=== PATIENT | female | born 1990 | race Caucasian/White ===

== ENCOUNTER 2019-11-12 21:15 | Outpatient (CLI) | payer BC ==
[~2019-11-12] VITALS: Ht 157.5 cm; Wt 93.6 kg
[~2019-11-12 21:15] MED LIST: IBUP-1222 PO; OXYC-302 PO
[2019-11-12 21:59] VITALS: BP 118/81
== END 2019-11-12 23:59 | disposition home or self-care (01) ==
LOC: LDOP 21:15
PROVIDERS: ATTEND Obstetrics & Gynecology
DX: O26.893 Other specified pregnancy related conditions, third trimester (principal); R10.9 Unspecified abdominal pain; Z3A.39 39 weeks gestation of pregnancy
CPT/HCPCS: 59025; 99211; G0463

== ENCOUNTER 2019-11-13 06:38 | Inpatient (IN) | payer BC ==
[~2019-11-13] VITALS: Ht 157.5 cm; Wt 93.6 kg
[2019-11-13] MEDS ORDERED: OXYTOCIN 30U/ 0.9% NaCL 500ML 500 ML IV PRN ×2 (06:50→07:16)
[2019-11-13] MEDS ORDERED: OXYTOCIN 30U/ 0.9% NaCL 500ML 500 ML IV ONE (06:50)
[2019-11-13] MEDS ORDERED: TERBUTALINE 1 MG/ML, 1ML IVPush PRN (07:00)
[2019-11-13] MEDS ORDERED: ONDANSETRON 2MG/ML, 2ML IVPush PRN ×2 (07:00→10:00)
[2019-11-13] MEDS ORDERED: METOCLOPRAMIDE 5 MG/ML, 2ML IVPush PRN (07:00)
[2019-11-13] MEDS ORDERED: FENTANYL PF 100 MCG/2ML IV PRN (07:00)
[2019-11-13] MEDS ORDERED: SODIUM CITRATE/CITRIC ACID 30 ML UDC PO PRN (07:00)
[2019-11-13] MEDS ORDERED: TERBUTALINE 1 MG/ML, 1ML SQ PRN (07:00)
[2019-11-13] MEDS ORDERED: FENTANYL PF 100 MCG/2ML IVPush PRN (07:00)
[2019-11-13] MEDS: LACTATED RINGERS 1,000 ML IV SCH ×6 (07:06→23:33)
[2019-11-13] MEDS ORDERED: MISOPROSTOL 200 MCG TABLET ONE (07:13)
[2019-11-13] MEDS ORDERED: LIDOCAINE 1%, 20ML ONE (07:13)
[2019-11-13] MEDS ORDERED: NEWBORN KIT ONE ×2 (07:13→22:13)
[2019-11-13] MEDS ORDERED: OXYTOCIN 30U/ 0.9% NaCL 500ML 500 ML ONE ×2 (07:13→22:33)
[2019-11-13 07:24] LABS: BASOPHILS # (AUTO) 0.02 x10^3/uL (0-0.1); BASOPHILS % (AUTO) 0 % (0-1); EOSINOPHILS # (AUTO) 0.03 x10^3/uL (0-0.4); EOSINOPHILS % (AUTO) 1 % (1-7); LYMPHOCYTES # (AUTO) 1.86 x10^3/uL (1-3.4); LYMPHOCYTES % (AUTO) 30 % (22-44); MD NO; MEAN CORPUSCULAR HEMOGLOBIN 30.7 pg (27.0-34.8); MEAN CORPUSCULAR HGB CONC 33.7 g/dL (32.4-35.8); MEAN CORPUSCULAR VOLUME 91.2 fL (80-100); MEAN PLATELET VOLUME 8.3 fL (7.4-10.4); MONOCYTES # (AUTO) 0.72 x10^3/uL (0.2-0.8); MONOCYTES % (AUTO) 12 % (2-9); NEUTROPHILS # (AUTO) 3.59 x10^3/uL (1.8-6.8); NEUTROPHILS % (AUTO) 58 % (42-75); PLATELET COUNT 243 x10^3/uL (130-400); RED BLOOD COUNT 3.89 x10^6/uL (3.82-5.3); RED CELL DISTRIBUTION WIDTH 12.9 % (9.6-15.2)
[2019-11-13 07:54] VITALS: BP 119/75
[2019-11-13] MEDS ORDERED: FENTANYL/BUPIV./NS/PF 250 ML EPIDCONT SCH ×2 (08:09→09:33)
[2019-11-13] MEDS ORDERED: FENTANYL PF 500 MCG, BUPIVACAINE/PF 0.5%, 30ML 62.5 ML in SODIUM CHLORIDE 0.9% 177.5 ML EPIDCONT SCH (08:30)
[2019-11-13] MEDS ORDERED: BUPIVACAINE 0.25% ONE (09:06)
[2019-11-13] MEDS ORDERED: NALOXONE 0.4 MG/ML, 1ML IVPush PRN (10:00)
[2019-11-13] MEDS ORDERED: DIPHENHYDRAMINE 50 MG/ML, 1ML IVPush PRN (10:00)
[2019-11-13] MEDS ORDERED: EPHEDRINE 50 MG/ML, 1ML IVPush PRN (10:00)
[2019-11-13] MEDS ORDERED: LACTATED RINGERS 1,000 ML IVBOLUS PRN (10:00)
[2019-11-13] MEDS: D5%-LACTATED RINGERS 1,000 ML IV SCH ×3 (10:09→22:50)
[2019-11-13] MEDS ORDERED: LIDOCAINE/MPF 2%-EPI 1:200K, 20 ML ONE (17:54)
[2019-11-13] MEDS ORDERED: METHYLERGONOVINE 0.2 MG/ML IM ONE (22:33)
[2019-11-13] MEDS ORDERED: CEFAZOLIN 2,000 MG in SODIUM CHLORIDE 0.9% 50 ML IV STA (22:34)
[2019-11-13] MEDS ORDERED: METOCLOPRAMIDE 5 MG/ML, 2ML IV PRN (23:00)
[2019-11-13] MEDS ORDERED: OXYcodone/APAP 5/325MG TABLET PO PRN (23:00)
[2019-11-13] MEDS ORDERED: CARBOPROST TROMETHAMINE 250 MCG/ML, 1ML IM PRN (23:00)
[2019-11-13] MEDS ORDERED: ACETAMINOPHEN 325 MG TABLET PO PRN ×3 (23:00)
[2019-11-13] MEDS ORDERED: CALCIUM CARBONATE 500 MG TAB.CHEW PO PRN (23:00)
[2019-11-13] MEDS ORDERED: ONDANSETRON 2MG/ML, 2ML IV PRN (23:00)
[2019-11-13] MEDS ORDERED: MAGNESIUM HYDROXIDE 8%, 30ML UDC PO PRN (23:00)
[2019-11-13] MEDS ORDERED: METHYLERGONOVINE 0.2 MG/ML IM PRN (23:00)
[2019-11-13] MEDS ORDERED: SIMETHICONE 80 MG CHEW TAB PO PRN (23:00)
[2019-11-13] MEDS ORDERED: BISACODYL 10 MG SUPP PR PRN (23:00)
[2019-11-13] MEDS ORDERED: MISOPROSTOL 200 MCG TABLET PR PRN (23:00)
[2019-11-13] MEDS ORDERED: GLYCERIN ADULT SUPP PR PRN (23:00)
[2019-11-13] MEDS ORDERED: IBUPROFEN 600 MG TABLET ONE (23:28)
[2019-11-13] MEDS: IBUPROFEN 600 MG TABLET PO PRN (23:31)
[2019-11-13] MEDS: OXYTOCIN 30U/ 0.9% NaCL 500ML 500 ML IV SCH (23:33)
[2019-11-14] VITALS (7 sets, daily range): BP systolic 108–116; BP diastolic 74–82
[2019-11-14] MEDS: OXYcodone/APAP 5/325MG TABLET PO PRN ×2 (04:33→08:30)
[2019-11-14] MEDS: LEVOTHYROXINE 50 MCG TABLET PO SCH (06:15)
[2019-11-14 06:42] LABS: MEAN CORPUSCULAR HEMOGLOBIN 30.6 pg (27.0-34.8); MEAN CORPUSCULAR HGB CONC 33.5 g/dL (32.4-35.8); MEAN CORPUSCULAR VOLUME 91.3 fL (80-100); MEAN PLATELET VOLUME 8.3 fL (7.4-10.4); PLATELET COUNT 214 x10^3/uL (130-400); RED BLOOD COUNT 3.56 x10^6/uL (3.82-5.3); RED CELL DISTRIBUTION WIDTH 12.8 % (9.6-15.2)
[2019-11-14 08:14] LABS: BASOPHILS # (AUTO) 0.03 x10^3/uL (0-0.1); BASOPHILS % (AUTO) 0 % (0-1); EOSINOPHILS # (AUTO) 0.01 x10^3/uL (0-0.4); EOSINOPHILS % (AUTO) 0 % (1-7); LYMPHOCYTES # (AUTO) 1.65 x10^3/uL (1-3.4); LYMPHOCYTES % (AUTO) 12 % (22-44); MD SCAN; MONOCYTES # (AUTO) 1.53 x10^3/uL (0.2-0.8); MONOCYTES % (AUTO) 11 % (2-9); NEUTROPHILS # (AUTO) 10.57 x10^3/uL (1.8-6.8); NEUTROPHILS % (AUTO) 77 % (42-75)
[2019-11-14] MEDS: IBUPROFEN 600 MG TABLET PO PRN ×2 (08:31→15:20)
[2019-11-14] MEDS: PRENATAL VIT/IRON/FA 1 EACH TABLET PO SCH (08:31)
[2019-11-14] MEDS: OXYTOCIN 30U/ 0.9% NaCL 500ML 500 ML IV SCH ×2 (08:48→18:48)
[2019-11-14] MEDS: DOCUSATE 100 MG CAPSULE PO PRN (16:23)
[2019-11-15] MEDS: OXYTOCIN 30U/ 0.9% NaCL 500ML 500 ML IV SCH (04:48)
[2019-11-15] MEDS: LEVOTHYROXINE 50 MCG TABLET PO SCH (06:40)
[2019-11-15 08:00] VITALS: BP 97/66
[2019-11-15] MEDS: DOCUSATE 100 MG CAPSULE PO PRN (09:40)
[2019-11-15] MEDS: PRENATAL VIT/IRON/FA 1 EACH TABLET PO SCH (09:40)
[2019-11-15 13:00] VITALS: BP 110/76
== END 2019-11-15 14:39 | disposition home or self-care (01) | DRG 805 ==
LOC: LDIP 06:38 → 2NW 11-14 00:28
PROVIDERS: ADMIT Obstetrics & Gynecology; ATTEND Obstetrics & Gynecology
PROC: 10E0XZZ Delivery of Products of Conception, External Approach (ICD-10-PCS; principal; 2019-11-13)
PROC: 0KQM0ZZ Repair Perineum Muscle, Open Approach (ICD-10-PCS; 2019-11-13)
PROC: 10907ZU Drainage of Amniotic Fluid, Diagnostic from Products of Conception, Via Natural or Artificial Opening (ICD-10-PCS; 2019-11-13)
PROC: 10H07YZ Insertion of Other Device into Products of Conception, Via Natural or Artificial Opening (ICD-10-PCS; 2019-11-13)
PROC: 3E0R3BZ Introduction of Anesthetic Agent into Spinal Canal, Percutaneous Approach (ICD-10-PCS; 2019-11-13)
PROC: 00HU33Z Insertion of Infusion Device into Spinal Canal, Percutaneous Approach (ICD-10-PCS; 2019-11-13)
DX: O69.1XX0 Labor and delivery complicated by cord around neck, with compression, not applicable or unspecified (principal); O41.1230 Chorioamnionitis, third trimester, not applicable or unspecified; Z37.1 Single stillbirth; O34.211 Maternal care for low transverse scar from previous cesarean delivery; E89.0 Postprocedural hypothyroidism; O99.284 Endocrine, nutritional and metabolic diseases complicating childbirth; O71.82 Other specified trauma to perineum and vulva; O70.1 Second degree perineal laceration during delivery; O76 Abnormality in fetal heart rate and rhythm complicating labor and delivery; Z3A.40 40 weeks gestation of pregnancy; Z90.49 Acquired absence of other specified parts of digestive tract
CPT/HCPCS: 36415; J7121; S0020; 82803; 85025; 86592; 86850; 86900; G0378; J0690; J3010; J3490; J2590; J7050; J7120

== ENCOUNTER 2020-04-19 14:56 | Outpatient (CLI) | payer BC ==
[2020-04-19 15:34] LABS: BASOPHILS # (AUTO) 0.02 x10^3/uL (0-0.1); BASOPHILS % (AUTO) 0 % (0-1); EOSINOPHILS # (AUTO) 0.11 x10^3/uL (0-0.4); EOSINOPHILS % (AUTO) 2 % (1-7); LYMPHOCYTES % (AUTO) 42 % (22-44); MD NO; MEAN CORPUSCULAR HEMOGLOBIN 31.1 pg (27.0-34.8); MEAN CORPUSCULAR HGB CONC 34.3 g/dL (32.4-35.8); MEAN CORPUSCULAR VOLUME 90.6 fL (80-100); MEAN PLATELET VOLUME 8.1 fL (7.4-10.4); MONOCYTES # (AUTO) 0.41 x10^3/uL (0.2-0.8); MONOCYTES % (AUTO) 8 % (2-9); NEUTROPHILS # (AUTO) 2.42 x10^3/uL (1.8-6.8); NEUTROPHILS % (AUTO) 48 % (42-75); PLATELET COUNT 291 x10^3/uL (130-400); RED BLOOD COUNT 4.52 x10^6/uL (3.82-5.3); RED CELL DISTRIBUTION WIDTH 12.6 % (9.6-15.2)
[2020-04-19 15:45] LABS: ALANINE AMINOTRANSFERASE 38 U/L (12-78); ANION GAP 6 mmol/L (5-15); CALCIUM 8.8 mg/dL (8.5-10.1); CHLORIDE 110 mmol/L (98-107); CREATININE 0.83 mg/dL (0.55-1.02)
[2020-04-19 15:50] LABS: ALKALINE PHOSPHATASE 70 U/L (45-117); BILIRUBIN,TOTAL 0.4 mg/dL (0.2-1.0)
[2020-04-19] MEDS ORDERED: LEVO50TA5 PO (16:18)
[2020-04-19] MEDS ORDERED: CHOL10003 PO (16:18)
[2020-04-19] MEDS ORDERED: MV M PO (16:18)
[2020-04-19] MEDS ORDERED: ACET-1600 PO (16:18)
[2020-04-19] MEDS ORDERED: NORE0.3513 PO (16:18)
== END 2020-04-19 23:59 | disposition home or self-care (01) ==
LOC: STAR 14:56
PROVIDERS: ATTEND Obstetrics & Gynecology
DX: Z01.818 Encounter for other preprocedural examination (principal)
CPT/HCPCS: 36415; 80053; 84702; 85025

== ENCOUNTER 2020-04-29 05:34 | Day surgery (SDC) | payer BC ==
[~2020-04-29] VITALS: Ht 157.5 cm; Wt 87.1 kg
[~2020-04-29 05:34] MED LIST changes: +ACET-1600 PO; +CHOL10003 PO; +LEVO50TA5 PO; +MV M PO; +NORE0.3513 PO
[2020-04-29 06:36] VITALS: BP 111/74
[2020-04-29] MEDS ORDERED: CHLORHEXIDINE 15 ML UDC MM STA (06:39)
[2020-04-29] MEDS ORDERED: BUPIVACAINE/PF-EPI 0.25% 1:200K ONE (06:47)
[2020-04-29] MEDS ORDERED: LACTATED RINGERS 1,000 ML IV SCH (07:00)
[2020-04-29] MEDS ORDERED: MAGNESIUM SULFATE 1 GM/2 ML ONE (07:02)
[2020-04-29] MEDS ORDERED: LIDOCAINE 1%, 20ML ONE (07:02)
[2020-04-29] MEDS ORDERED: LABETALOL 5MG/ML, 20ML ONE (07:02)
[2020-04-29 07:03] LABS: HCG UR SG 1.022 (1.003-1.030)
[2020-04-29] MEDS ORDERED: FENTANYL PF 250 MCG/5ML ONE (07:08)
[2020-04-29] MEDS ORDERED: DEXAMETHASONE 4 MG/ML, 1ML ONE (07:08)
[2020-04-29] MEDS ORDERED: LIDOCAINE-MPF 2% ,5ML ONE (07:08)
[2020-04-29] MEDS ORDERED: ROCURONIUM 10MG/ML,5ML ONE (07:08)
[2020-04-29] MEDS ORDERED: GLYCOPYRROLATE 0.2MG/1ML, 5ML ONE (07:08)
[2020-04-29] MEDS ORDERED: ONDANSETRON 2MG/ML, 2ML ONE (07:08)
[2020-04-29] MEDS ORDERED: MIDAZOLAM 1 MG/ML, 2ML ONE (07:08)
[2020-04-29] MEDS ORDERED: PROPOFOL 10 MG/ML, 20ML ONE (07:08)
[2020-04-29] MEDS ORDERED: DIPHENHYDRAMINE 50 MG/ML, 1ML IVPush PRN (07:30)
[2020-04-29] MEDS ORDERED: HYDROmorphone 1 MG/ML, 1ML INJ IVPush PRN (07:30)
[2020-04-29] MEDS ORDERED: MEPERIDINE/PF 25MG/0.5ML IVPush PRN (07:30)
[2020-04-29] MEDS ORDERED: HYDROcodone/APAP 7.5-325MG/15ML UDC PO PRN (07:30)
[2020-04-29] MEDS ORDERED: METHOCARBAMOL 1,000 MG in DEXTROSE 5% 100 ML IV PRN (07:30)
[2020-04-29] MEDS ORDERED: EPHEDRINE 50 MG/ML, 1ML IVPush PRN (07:30)
[2020-04-29] MEDS ORDERED: DIAZEPAM 5 MG/ML, 2ML IVPush PRN (07:30)
[2020-04-29] MEDS ORDERED: OXYcodone 5 MG/5 ML ORAL.SOL UDC PO PRN (07:30)
[2020-04-29] MEDS ORDERED: EPHEDRINE 50 MG/ML, 1ML IM PRN (07:30)
[2020-04-29] MEDS ORDERED: ALBUTEROL/IPRATROPIUM 2.5MG/0.5MG, 3 ML NPPB PRN (07:30)
[2020-04-29] MEDS ORDERED: ONDANSETRON 2MG/ML, 2ML IVPush PRN (07:30)
[2020-04-29] MEDS ORDERED: HALOPERIDOL 5 MG/ML IV PRN (07:30)
[2020-04-29] MEDS ORDERED: LABETALOL 5MG/ML, 20ML IV PRN (07:30)
[2020-04-29] MEDS ORDERED: METOCLOPRAMIDE 5 MG/ML, 2ML IVPush PRN (07:30)
[2020-04-29] MEDS ORDERED: morphine SULFATE 10 MG/ML, 1ML IVPush PRN (07:30)
[2020-04-29] MEDS ORDERED: KETOROLAC 30 MG/1 ML IVPush PRN (07:30)
[2020-04-29] MEDS ORDERED: MIDAZOLAM 1 MG/ML, 2ML IV PRN (07:30)
[2020-04-29] MEDS ORDERED: LORazepam 2 MG/ML, 1ML IVPush PRN (07:30)
[2020-04-29] MEDS ORDERED: FENTANYL PF 100 MCG/2ML ONE (08:42)
[2020-04-29] MEDS ORDERED: KETOROLAC 30 MG/1 ML ONE (08:42)
[2020-04-29] MEDS: FENTANYL PF 100 MCG/2ML IV PRN ×2 (08:46→09:09)
[2020-04-29] MEDS ORDERED: OXYcodone 5 MG/5 ML ORAL.SOL UDC ONE (09:05)
== END 2020-04-29 10:30 | disposition home or self-care (01) ==
LOC: OUT 05:34
PROVIDERS: ATTEND Obstetrics & Gynecology
DX: Z30.2 Encounter for sterilization (principal); E66.9 Obesity, unspecified; E03.9 Hypothyroidism, unspecified; Z68.35 Body mass index [BMI] 35.0-35.9, adult; Z79.899 Other long term (current) drug therapy; Z90.49 Acquired absence of other specified parts of digestive tract; Z98.890 Other specified postprocedural states; Z72.89 Other problems related to lifestyle
CPT/HCPCS: 36415; 58670; 81025; 86850; 86900; 88302; J1100; J1885; J2250; J2405; J2704; J3010; J3475; J7120; U0001